=== PATIENT | female | born 1955 | race Caucasian/White ===

== ENCOUNTER → 2022-10-26 | Outpatient (REF) | payer MEDICARE ==
[2022-10-26 18:21] LABS: BASO # 0.1 10^3/uL (0.0-0.2); BASO % 0.9 % (0.0-1.0); EOS # 0.1 10^3/uL (0.0-0.5); EOS % 2.2 % (0.0-3.0); HEMATOCRIT 44.9 % (36.0-47.0); HEMOGLOBIN 14.6 g/dl (12.0-15.5); LYMPH # 1.5 10^3/uL (1.5-5.0); LYMPH % 23.2 % (24.0-44.0); MEAN CORPUSCULAR HGB CONC 32.5 g/dl (32.0-36.5); MEAN CORPUSCULAR VOLUME 92.2 fl (80.0-96.0); MONO # 0.4 10^3/uL (0.0-0.8); MONO % 6.1 % (2.0-8.0); NEUTROPHILS # 4.4 10^3/uL (1.5-8.5); NEUTROPHILS % 67.3 % (36.0-66.0); PLATELET COUNT, AUTOMATED 268 10^3/uL (150-450); RED BLOOD COUNT 4.87 10^6/uL (4.00-5.40); WHITE BLOOD COUNT 6.5 10^3/uL (4.0-10.0)
[2022-10-26 18:45] LABS: C REACTIVE PROTEIN QUANTITATIV < 0.40 MG/DL (<1.0)
[2022-10-26 18:46] LABS: COMPLEMENT C3 175.3 MG/DL (90.0-170.0); COMPLEMENT C4 32.2 MG/DL (12-36); CPK CREATINE PHOSPHOKINASE 70 U/L (34-145); CREATININE,RANDOM URINE 42.9 MG/DL; IRON (FE) 69 UG/DL (50-170); MAGNESIUM LEVEL 1.8 MG/DL (1.8-2.4)
[2022-10-26 18:47] LABS: ERYTHROCYTE SEDIMENTATION RATE 38 mm/hr (0-30)
[2022-10-26 18:50] LABS: TOTAL 25(OH) VITAMIN D 33.5 NG/ML (20.0-100.0); VITAMIN B12 LEVEL 570 PG/ML (211-911)
[2022-10-26 18:53] LABS: TOTAL PROTEIN,RANDOM URINE < 6.0 MG/DL (0.0-14.0)
[2022-10-26 19:06] LABS: APPEARANCE, URINE MANUAL CLEAR (CLEAR); COLOR, URINE MANUAL YELLOW (YELLOW)
[2022-10-26 19:08] LABS: BILIRUBIN, URINE MANUAL NEGATIVE (NEGATIVE); GLUCOSE, URINE (UA) MANUAL NEGATIVE (NEGATIVE); KETONE, URINE MANUAL NEGATIVE (NEGATIVE); NITRITE, URINE MANUAL NEGATIVE (NEGATIVE); PROTEIN, URINE MANUAL NEGATIVE (NEGATIVE); UROBILINOGEN, URINE MANUAL NORMAL (NORMAL)
[2022-10-26 19:09] LABS: BLOOD URINE MANUAL NEGATIVE (NEGATIVE); LEUKOCYTE ESTERASE, URINE MAN NEGATIVE (NEGATIVE)
[2022-11-01 11:29] LABS: DRVV SCREEN 34.2 SEC
[2022-11-01 12:10] LABS: PTT LUPUS TYPE ANTICOAG SCREEN 0.9 (0-1.2)
== END ==
LOC: M SFHCRHEU 15:04
PROVIDERS: ATTEND Internal Medicine
DX: R76.8 Other specified abnormal immunological findings in serum (principal); M79.10 Myalgia, unspecified site; M25.50 Pain in unspecified joint; Z79.899 Other long term (current) drug therapy
CPT/HCPCS: 81002; 82306; 82550; 82570; 82607; 83540; 83735; 84100; 84156; 85025; 85652; 85730; 86140; 86160; 86162; G0463

== ENCOUNTER → 2023-06-23 | Outpatient (REF) | payer MEDICARE | LOC: M SFHCRHEU 13:31 | PROVIDERS: ATTEND Internal Medicine | DX: R76.8 Other specified abnormal immunological findings in serum (principal) ==